=== PATIENT | female | born 1940 | race Caucasian/White ===

== ENCOUNTER → 2023-09-17 07:56 | Outpatient (REF) | payer MEDICARE, OTHER, SELFPAY ==
[2023-09-17 09:24] LABS: Glycohemoglobin (HgbA1c) 6.2 % (4.0-5.6)
[2023-09-17 09:26] LABS: ALT (SGPT) 20 U/L (0-35); AST (SGOT) 40 U/L (14-36); Blood Urea Nitrogen 25 mg/dl (7-17); HDL Cholesterol 83 mg/dl; LDL Cholesterol, Calculated 47 mg/dl; Total Cholesterol 159 mg/dl (50-199); Triglyceride 149 mg/dl (10-149); Very Low Density Lipoprotein 29 mg/dl (0-30)
[2023-09-17 10:11] LABS: Microalbumin, Random Urine 7.2 mg/dl (0.6-1.7); Microalbumin/creatinine Ratio 42.8 mg/g
== END ==
LOC: REG 07:56
PROVIDERS: ATTENDING PHYSICIAN Family Medicine
DX: E11.21 Type 2 diabetes mellitus with diabetic nephropathy (principal)
CPT/HCPCS: 36415; 80061; 82043; 82565; 82570; 83036; 84450; 84460; 84520

== ENCOUNTER → 2023-10-08 07:57 | Outpatient (REF) | payer MEDICARE, OTHER, SELFPAY ==
[2023-10-10 11:24] LABS: Renin Activity Results <0.1 ng/mL/hr
== END ==
LOC: REG 07:57
PROVIDERS: ATTENDING PHYSICIAN Specialist
DX: I10 Essential (primary) hypertension (principal)
CPT/HCPCS: 36415; 82088; 82384; 83835; 84244

== ENCOUNTER → 2023-10-29 07:44 | Outpatient (REF) | payer MEDICARE, OTHER, SELFPAY ==
[2023-10-29 08:11] LABS: % Eosinophils 0.6 % (0-6); % Lymphocytes 31.5 % (20.5-51.1); % Monocytes 17.2 % (1.7-9.3); % Neutrophils 50.7 % (42.2-75.2); Absolute Lymphocytes 1.1 10^3/uL (1.2-3.4); Absolute Monocytes 0.6 10^3/uL (0.1-0.6); Absolute Neutrophils 1.7 10^3/uL (1.4-6.5); Hematocrit 37.6 % (37.0-47.0); Hemoglobin 12.9 g/dL (12.0-16.0); Mean Corp Hgb Conc. 34.3 g/dL (33.0-37.0); Mean Corpuscular Hgb 29.1 pg (27.0-31.0); Mean Corpuscular Volume 84.9 fL (81.0-99.0); Mean Platelet Volume 11.5 fL (7.4-10.4); Nucleated Red Blood Cells % 0 %; Platelet Count 115 10^3/uL (130-400); Red Blood Cell Count 4.43 10^6/uL (4.20-5.40); Red Cell Dist. Width 13.9 % (11.5-14.5); White Blood Cell Count 3.4 10^3/uL (4.8-10.8)
[2023-10-29 08:36] LABS: ALT (SGPT) 26 U/L (0-35); AST (SGOT) 39 U/L (14-36); Albumin 4.6 g/dl (3.5-5.0); Alkaline Phosphatase 63 U/L (38-126); Blood Urea Nitrogen 29 mg/dl (7-17); Calcium 9.9 mg/dl (8.4-10.2); Carbon Dioxide 29 mmol/L (22-30); Chloride 105 mmol/L (98-107); Glucose 110 mg/dl (70-99); LDH 226 U/L (120-246); Potassium 4.6 mmol/L (3.5-5.1); Sodium 140 mmol/L (135-145); Total Bilirubin 0.8 mg/dl (0.2-1.3); Total Protein 7.2 g/dl (6.3-8.2); eGFR 34.79
[2023-10-31 02:19] LABS: Beta-2-Microglobulin 3.6 mg/L (<=3.0)
[2023-11-01 05:19] LABS: Albumin 4.42 g/dL (3.75-5.01); Alpha 2 Globulin 0.74 g/dL (0.48-1.05); Free Kappa Light Chains,Quant 36.66 mg/L (3.30-19.40); Free Lambda Light Chains,Quant 22.41 mg/L (5.71-26.30); IgA 312 mg/dL (68-408); IgG 788 mg/dL (768-1632); IgM 37 mg/dL (35-263); Immunofixation Electrophoresis IFE Done; Kappa/Lambda Fr Light Ratio 1.64 (0.26-1.65); Total Protein-Electrophoresis 7.1 g/dL (6.3-8.2)
== END ==
LOC: REG 07:44
PROVIDERS: ATTENDING PHYSICIAN Internal Medicine Hematology & Oncology; FAMILY PHYSICIAN Family Medicine
DX: D47.2 Monoclonal gammopathy (principal); D46.9 Myelodysplastic syndrome, unspecified; C83.38 Diffuse large B-cell lymphoma, lymph nodes of multiple sites; D70.9 Neutropenia, unspecified
CPT/HCPCS: 36415; 80053; 82232; 82784; 83521; 83615; 84155; 84165; 85025; 86334

== ENCOUNTER → 2024-04-08 08:24 | Outpatient (REF) | payer MEDICARE, OTHER, SELFPAY ==
[2024-04-08 09:27] LABS: Hematocrit 36.6 % (37.0-47.0); Hemoglobin 12.4 g/dL (12.0-16.0); Mean Corp Hgb Conc. 33.9 g/dL (33.0-37.0); Mean Corpuscular Hgb 29.5 pg (27.0-31.0); Mean Corpuscular Volume 86.9 fL (81.0-99.0); Platelet Count 108 10^3/uL (130-400); Red Blood Cell Count 4.21 10^6/uL (4.20-5.40); Red Cell Dist. Width 13.6 % (11.5-14.5); White Blood Cell Count 2.9 10^3/uL (4.8-10.8)
[2024-04-08 09:43] LABS: ALT (SGPT) 20 U/L (0-35); AST (SGOT) 37 U/L (14-36); Albumin 4.8 g/dl (3.5-5.0); Alkaline Phosphatase 69 U/L (38-126); Blood Urea Nitrogen 25 mg/dl (7-17); Calcium 10.3 mg/dl (8.4-10.2); Carbon Dioxide 26 mmol/L (22-30); Chloride 108 mmol/L (98-107); Glucose 105 mg/dl (70-99); Potassium 4.6 mmol/L (3.5-5.1); Sodium 147 mmol/L (135-145); Total Bilirubin 0.7 mg/dl (0.2-1.3); Total Protein 7.5 g/dl (6.3-8.2); eGFR 34.58
[2024-04-08 09:46] LABS: ALT (SGPT) 20 U/L (0-35); AST (SGOT) 38 U/L (14-36); Albumin 4.9 g/dl (3.5-5.0); Alkaline Phosphatase 67 U/L (38-126); Blood Urea Nitrogen 25 mg/dl (7-17); Calcium 10.2 mg/dl (8.4-10.2); Carbon Dioxide 25 mmol/L (22-30); Chloride 108 mmol/L (98-107); Glucose 107 mg/dl (70-99); HDL Cholesterol 70 mg/dl; LDH 253 U/L (120-246); LDL Cholesterol, Calculated 76 mg/dl; Potassium 4.7 mmol/L (3.5-5.1); Sodium 145 mmol/L (135-145); Total Bilirubin 0.7 mg/dl (0.2-1.3); Total Cholesterol 175 mg/dl (50-199); Total Protein 7.4 g/dl (6.3-8.2); Triglyceride 148 mg/dl (10-149); Very Low Density Lipoprotein 29 mg/dl (0-30)
[2024-04-08 09:56] LABS: Absolute Neutrophils -Man Diff 1.4 10^3/uL (1.4-6.5); Band Neutrophils 1 % (0-3); Hypochromasia Slight; Lymphocytes 36 % (20-51); Microcytosis 1+; Monocytes 14 % (2-9); Normal RBC Morphology No; Ovalocytes 1+; Platelets Checked Yes; Polychromasia Slight; Segmented Neutrophils 49 % (42-75); Total Cells Counted 100
[2024-04-08 10:08] LABS: TSH 0.24 uIU/ml (0.47-4.68)
[2024-04-08 10:13] LABS: Glycohemoglobin (HgbA1c) 5.8 % (4.0-5.6)
[2024-04-11 00:13] LABS: Albumin 4.49 g/dL (3.75-5.01); Alpha 1 Globulin 0.27 g/dL (0.19-0.46); Free Kappa Light Chains,Quant 41.16 mg/L (3.30-19.40); IgA 350 mg/dL (68-408); IgG 933 mg/dL (768-1632); IgM 55 mg/dL (35-263); Immunofixation Electrophoresis IFE Done; Kappa/Lambda Fr Light Ratio 1.72 (0.26-1.65); Total Protein-Electrophoresis 7.2 g/dL (6.3-8.2)
== END ==
LOC: REG 08:24
PROVIDERS: ATTENDING PHYSICIAN Internal Medicine Hematology & Oncology; FAMILY PHYSICIAN Family Medicine
DX: D47.2 Monoclonal gammopathy (principal); D46.9 Myelodysplastic syndrome, unspecified; C83.38 Diffuse large B-cell lymphoma, lymph nodes of multiple sites; D70.9 Neutropenia, unspecified; E11.21 Type 2 diabetes mellitus with diabetic nephropathy
CPT/HCPCS: 36415; 80053; 80061; 82784; 83036; 83521; 83615; 84155; 84165; 84443; 85025; 86334

== ENCOUNTER → 2024-04-12 09:04 | Outpatient (REF) | payer MEDICARE, OTHER, SELFPAY | LOC: RAD 09:04 | PROVIDERS: ATTENDING PHYSICIAN Internal Medicine Hematology & Oncology; FAMILY PHYSICIAN Family Medicine | DX: D47.2 Monoclonal gammopathy (principal); D46.9 Myelodysplastic syndrome, unspecified; C83.38 Diffuse large B-cell lymphoma, lymph nodes of multiple sites; D70.9 Neutropenia, unspecified | CPT/HCPCS: 71260; 74177; Q9967 ==

== ENCOUNTER → 2024-05-07 08:27 | Outpatient (REF) | payer MEDICARE, OTHER, SELFPAY ==
[2024-05-07 11:37] LABS: Blood Urea Nitrogen 24 mg/dl (7-17); Carbon Dioxide 26 mmol/L (22-30); Chloride 104 mmol/L (98-107); Glucose 101 mg/dl (70-99); Potassium 4.3 mmol/L (3.5-5.1); Sodium 144 mmol/L (135-145); eGFR 37.56
[2024-05-07 12:06] LABS: TSH Reflex To Free T4 0.66 uIU/ml (0.47-4.68)
[2024-05-08 21:24] LABS: Thyroid Peroxidase Ab (TPO) 1.1 IU/mL (0.0-9.0)
== END ==
LOC: REG 08:27
PROVIDERS: ATTENDING PHYSICIAN Family Medicine
DX: R89.9 Unspecified abnormal finding in specimens from other organs, systems and tissues (principal); R79.89 Other specified abnormal findings of blood chemistry; E83.52 Hypercalcemia
CPT/HCPCS: 36415; 80048; 84443; 86376

== ENCOUNTER → 2024-10-22 07:52 | Outpatient (REF) | payer MEDICARE, OTHER, SELFPAY ==
[2024-10-22 09:16] LABS: Hematocrit 36.2 % (37.0-47.0); Hemoglobin 12.2 g/dL (12.0-16.0); Mean Corp Hgb Conc. 33.7 g/dL (33.0-37.0); Mean Corpuscular Hgb 28.4 pg (27.0-31.0); Mean Corpuscular Volume 84.2 fL (81.0-99.0); Mean Platelet Volume 11.8 fL (7.4-10.4); Platelet Count 122 10^3/uL (130-400); Red Cell Dist. Width 14.6 % (11.5-14.5); White Blood Cell Count 3.5 10^3/uL (4.8-10.8)
[2024-10-22 09:31] LABS: ALT (SGPT) 21 U/L (0-35); AST (SGOT) 32 U/L (14-36); Albumin 4.5 g/dl (3.5-5.0); Alkaline Phosphatase 73 U/L (38-126); Blood Urea Nitrogen 20 mg/dl (7-17); Calcium 9.9 mg/dl (8.4-10.2); Carbon Dioxide 26 mmol/L (22-30); Chloride 107 mmol/L (98-107); Glucose 102 mg/dl (70-99); LDH 249 U/L (120-246); Potassium 4.1 mmol/L (3.5-5.1); Sodium 141 mmol/L (135-145); Total Bilirubin 0.7 mg/dl (0.2-1.3); Total Protein 7.2 g/dl (6.3-8.2); eGFR 41.06
[2024-10-22 12:31] LABS: Absolute Neutrophils -Man Diff 1.7 10^3/uL (1.4-6.5); Atypical Lymphocytes 6 %; Band Neutrophils 0 % (0-3); Eosinophils 1 % (0-6); Lymphocytes 26 % (20-51); Monocytes 17 % (2-9); Segmented Neutrophils 50 % (42-75)
[2024-10-22 12:33] LABS: Anisocytosis Slight; Hypochromasia Slight; Normal RBC Morphology No; Ovalocytes Slight; Platelets Checked Yes; Total Cells Counted 100
== END ==
LOC: REG 07:52
PROVIDERS: ATTENDING PHYSICIAN Internal Medicine Hematology & Oncology; FAMILY PHYSICIAN Family Medicine
DX: D47.2 Monoclonal gammopathy (principal); D46.9 Myelodysplastic syndrome, unspecified; C83.38 Diffuse large B-cell lymphoma, lymph nodes of multiple sites; D70.9 Neutropenia, unspecified
CPT/HCPCS: 36415; 80053; 83615; 85025

== ENCOUNTER 2024-11-22 15:25 | Emergency (ER) | payer MEDICARE, OTHER, SELFPAY ==
[2024-11-22 15:39] VITALS: BP 131/43
[2024-11-22 15:40] VITALS: BP 131/43
[2024-11-22 16:10] LABS: % Basophils 0.1 % (0-2); % Immature Granulocytes 0.4 % (0-0.5); % Lymphocytes 12.9 % (20.5-51.1); % Monocytes 12.2 % (1.7-9.3); % Neutrophils 74.4 % (42.2-75.2); Absolute Lymphocytes 0.9 10^3/uL (1.2-3.4); Absolute Monocytes 0.8 10^3/uL (0.1-0.6); Absolute Neutrophils 5.1 10^3/uL (1.4-6.5); Hematocrit 35.8 % (37.0-47.0); Hemoglobin 12.1 g/dL (12.0-16.0); Mean Corp Hgb Conc. 33.8 g/dL (33.0-37.0); Mean Corpuscular Hgb 28.4 pg (27.0-31.0); Nucleated Red Blood Cells % 0 %; Platelet Count 137 10^3/uL (130-400); Red Blood Cell Count 4.26 10^6/uL (4.20-5.40); Red Cell Dist. Width 14.2 % (11.5-14.5); White Blood Cell Count 6.8 10^3/uL (4.8-10.8)
[2024-11-22 16:24] LABS: ALT (SGPT) 21 U/L (0-35); AST (SGOT) 34 U/L (14-36); Albumin 5.1 g/dl (3.5-5.0); Alkaline Phosphatase 88 U/L (38-126); Blood Urea Nitrogen 31 mg/dl (7-17); Calcium 10.1 mg/dl (8.4-10.2); Carbon Dioxide 23 mmol/L (22-30); Chloride 105 mmol/L (98-107); Glucose 225 mg/dl (70-99); Lipase 188 U/L (23-300); Potassium 3.9 mmol/L (3.5-5.1); Sodium 142 mmol/L (135-145); Total Bilirubin 0.8 mg/dl (0.2-1.3); Total Protein 7.6 g/dl (6.3-8.2)
[2024-11-22 17:17] VITALS: BP 130/54
[2024-11-22 17:21] VITALS: BMI 20.7
--- NOTE | 2024-11-22 17:34 | ED.GENMED ---
History of Present Illness
General
Chief Complaint: Abdominal Symptoms
Source: patient
Exam Limitations: none
Time Seen by Provider: 11/22/24 16:47
Nursing documentation reviewed up to this point in time: agreed with
History of Present Illness
History of Present Illness:
Patient is an 84-year-old female brought by EMS. Son at bedside reports patient does have dementia and lives with him. Normally she is up in the morning but when he went to work this morning she was still sleeping and when he came home she was
still in bed but does not like her. She complained of not feeling well when her son got home from work. He called EMS and she did have an episode of vomiting.
Patient is awake alert she is pleasantly confused and unable to give a good history.
She denies any abdominal pain now. She denies any nausea now. She has no complaints. She denies any chest pain shortness of breath.
Past History
Past History
ED Past Medical History: CVA, HTN, Hypercholesterolemia, Other (Glaucoma, hx of dvt) and Other (hypercalcemia, anemia, stage 3 KD)
ED Past Surgical History: Negative Cardiac
Social History
Tobacco: Non-smoker
Alcohol: None
Drug: None
Living: with family
Employment: Retired
Family History
Family History: Other (Noncontributory)
Review of Systems
Review of Systems
Allergies reviewed?: Yes
Unable to obtain full review of systems at this time due to: dementia
Other source history: family
All Other Systems: ROS reviewed and negative except as documented in HPI and ROS
Constitutional: Denies fever, fatigue or chills
EENT: Reports no symptoms
Respiratory: Reports no symptoms
Cardiac: Reports no symptoms; Denies chest pain
ABD/GI: Reports nausea and vomiting; Denies abdominal pain
: Reports no symptoms
Musculoskeletal: Reports no symptoms
Skin: Reports no symptoms
Psychiatric: Reports no symptoms
Phy Exam
General Physical Exam
General Presentation: no apparent distress
General age: appears stated age
General Skin: warm and dry
General Habitus: normal
General Mental: alert
General Hydration: appears well hydrated
Cardiovascular Exam
Cardiovascular Exam: regular rate/rhythm, no murmur and normal peripheral pulses
Pulmonary Exam
Pulmonary Exam: lungs clear and no respiratory distress
Gastrointestinal Exam
Gastrointestinal Exam: non tender and soft
Neurological Exam
Neurological Exam: alert and oriented x3
Musculoskeletal Exam
Musculoskeletal Exam: full ROM
Skin Exam
Skin Exam: normal color and warm/dry
Psychiatric Exam
Psychiatric Exam: normal mood/affect
Course
Orders/Labs/Results
Orders:
Orders
11/22/24 15:58
CMP [Comprehensive Metabolic Panel] Urgent
Complete Blood Count/With Diff Urgent
Lipase Urgent
11/22/24 17:35
Straight cath- Treatment ONCE
UA Reflex to Culture [Urinalysis Reflex To Culture] Urgent
11/22/24 17:36
Electrocardiogram (*1) Stat
Reason for Study: Other
Other Reason for Exam: chest pain
Cardiac Monitoring- Treatment ONCE
EKG- Treatment ONCE
0.9% Sodium Chloride 500 ml [Nss] 500 ml IV BOLUS
Ondansetron Injectable [Zofran] 4 mg IV NOW STA
11/22/24 17:41
COVID-19 Antigen Urgent
Source: Nasal Swab
Influenza A+B Rapid Molecular Urgent
WES Source: Nasal Swab
Specimen Description:
Abnormal Lab Results
11/22/24
15:58
Hct 35.8 L %
(37.0-47.0)
MPV 12.0 H fL
(7.4-10.4)
Absolute Lymphs (auto) 0.9 L 10^3/uL
(1.2-3.4)
Absolute Monos (auto) 0.8 H 10^3/uL
(0.1-0.6)
Lymphocytes % 12.9 L %
(20.5-51.1)
Monocytes % 12.2 H %
(1.7-9.3)
BUN 31 H mg/dl
(7-17)
Creatinine 1.6 H mg/dL
(0.6-1.0)
Glucose 225 H mg/dl
(70-99)
Albumin 5.1 H g/dl
(3.5-5.0)
11/22/24 15:58
11/22/24 15:58
Vital Signs
Initial and Last Documented VS:
Initial Vital Signs
Temp Pulse Resp BP Pulse Ox
98.1 F 70 16 131/43 97
11/22/24 15:39 11/22/24 15:39 11/22/24 15:39 11/22/24 15:39 11/22/24 15:39
Last Documented Vital Signs
Temp Pulse Resp BP Pulse Ox
97.6 F 60 16 120/53 100
11/22/24 15:40 11/22/24 19:45 11/22/24 19:45 11/22/24 19:00 11/22/24 19:45
Curtain Hemmer [employer] consulted with Physician
Curtain [employer]mer [employer] consulted with physician?: Yes
Name of Physician Consulted: librado
MDM/Problems Addressed
Differential Diagnosis Includes:
not limited to: Viral syndrome, nausea
MDM/Problems Addressed:
As documented patient is an 82-year-old female with dementia who was brought by EMS. Son reports patient complained of not feeling well at home and had episode of vomiting and EMS was called. She presented awake alert no acute distress though she
could not give a good history she had no complaints of pain or nausea. Abdomen soft and nontender. She has no complaints she was afebrile with a normal white count. She has baseline renal disease and her renal function is at baseline .
She was given 500 cc of fluid along with Zofran and remained awake alert with no complaints. She is very pleasant her family was at bedside she was very conversive and had no further complaints in the ER. She drank nitin edin. She was unable to
give a urine specimen however denies any UTI symptoms she had no tenderness over suprapubic region and has a normal white count with no fever. Nausea resolved stable for discharge home. case d/c w/ ED physician.
*Pulse Oximetry
Patient hypoxic: no
*EKG
Interpreted by ED Provider?: Yes
Interpretation: abnormal
Heart Rate: 59
Rate: bradycardiac
Rhythm: sinus
Ischemia: non-specific ST changes
*Critical Care Note
Total Time (30-74mins, 75-104mins- exclusive of procedures): Not Applicable
ED Attending Note
-
Portions of this chart may have been created with voice recognition software.� Occasional wrong word or��sound alike� substitutions may have occurred due to the inherent limitations of voice recognition software.
Discharge Plan
Departure
Patient Disposition: Home (Routine Discharge)
Date of Disposition: 11/22/24
Time of Disposition: 19:57
Patient with high blood pressure during this ER visit?: No
Condition: Fair
Covid-19: Not Applicable
Discharge Problem:
Nausea
Instructions: Nausea and Vomiting, Adult (DC)
Prescriptions:
No Action
aspirin 81 MG tablet,chewable
81 mg PO DAILY 0RF
atorvastatin 40 MG tablet
40 mg PO QPM
acetaminophen 325 MG tablet
650 mg PO Q4HPRN PRN (Reason: MILLER/mild pain/temp > 100.4 F) 0RF
donepezil 5 mg Tablet
5 mg PO DAILY
metoprolol succinate 25 mg Tablet Extended Release 24 Hr
25 mg PO DAILY
Referrals:
Cynthia Kaplan DO [Family Provider] -
Activity Restrictions/Additional Instructions:
As discussed patient should be evaluated by her family doctor in the next 2 to 3 days. Return if any worsening of symptoms.
Interventions
Interventions:
*Risk Screen - Suicide Last Done: 11/22/24 15:40
*General Assessment Last Done: 11/22/24 17:21
*Neglect/Abuse Screening Last Done: 11/22/24 15:40
*ED- Fall Risk Assessment Last Done: 11/22/24 17:21
*ED COVID-19 Vaccine History Last Done: 11/22/24 17:21
SZ-Xgqnnm-Uyszfnccgo Assessment Last Done: 11/22/24 17:21
Discharge Date and Time
Print Language: INDONESIAN
[2024-11-22] MEDS: ZOFRAN 4 MG IV (17:46)
[2024-11-22] MEDS: NSS 500 IV (17:46)
[2024-11-22 18:01] VITALS: BP 116/44
[2024-11-22 18:11] LABS: COVID-19 Antigen Negative (Negative)
[2024-11-22 19:00] VITALS: BP 120/53
== END 2024-11-22 20:09 | disposition home or self-care (01) ==
LOC: EMR 15:25
PROVIDERS: Nurse Practitioner; EMERGENCY PHYSICIAN Emergency Medicine; FAMILY PHYSICIAN Family Medicine
DX: R11.0 Nausea (principal); F03.90 Unspecified dementia, unspecified severity, without behavioral disturbance, psychotic disturbance, mood disturbance, and anxiety; E78.00 Pure hypercholesterolemia, unspecified; Z86.718 Personal history of other venous thrombosis and embolism; Z86.73 Personal history of transient ischemic attack (TIA), and cerebral infarction without residual deficits; I12.9 Hypertensive chronic kidney disease with stage 1 through stage 4 chronic kidney disease, or unspecified chronic kidney disease; N18.4 Chronic kidney disease, stage 4 (severe); Z11.52 Encounter for screening for COVID-19
CPT/HCPCS: 96374; 96361; 99284; 80053; 83690; 85025; 87502; 87811; 93005

== ENCOUNTER → 2025-03-23 08:03 | Outpatient (REF) | payer MEDICARE, OTHER, SELFPAY ==
[2025-03-23 08:49] LABS: Hematocrit 36.5 % (37.0-47.0); Hemoglobin 12.1 g/dL (12.0-16.0); Mean Corp Hgb Conc. 33.2 g/dL (33.0-37.0); Mean Corpuscular Volume 84.9 fL (81.0-99.0); Nucleated Red Blood Cells % 0 %; Platelet Count 117 10^3/uL (130-400); Red Cell Dist. Width 14.6 % (11.5-14.5)
[2025-03-23 09:25] LABS: Calcium 10.2 mg/dl (8.4-10.2)
[2025-03-23 09:48] LABS: Microalb - Urine Creatinine 126.800 mg/dl
[2025-03-23 09:49] LABS: Microalbumin, Random Urine 3.6 mg/dl (0.6-1.7)
[2025-03-23 10:35] LABS: ALT (SGPT) 20 U/L (0-35); AST (SGOT) 32 U/L (14-36); Albumin 4.9 g/dl (3.5-5.0); Alkaline Phosphatase 62 U/L (38-126); Blood Urea Nitrogen 28 mg/dl (7-17); Calcium 10.1 mg/dl (8.4-10.2); Carbon Dioxide 24 mmol/L (22-30); Chloride 109 mmol/L (98-107); Glucose 105 mg/dl (70-99); HDL Cholesterol 65 mg/dl; LDH 242 U/L (120-246); LDL Cholesterol, Calculated 71 mg/dl; Potassium 4.7 mmol/L (3.5-5.1); Sodium 141 mmol/L (135-145); Total Protein 8.0 g/dl (6.3-8.2); Very Low Density Lipoprotein 28 mg/dl (0-30); eGFR 29.57
[2025-03-23 16:06] LABS: Glycohemoglobin (HgbA1c) 5.9 % (4.0-5.6)
== END ==
LOC: REG 08:03
PROVIDERS: ATTENDING PHYSICIAN Internal Medicine Hematology & Oncology; FAMILY PHYSICIAN Family Medicine
DX: D47.2 Monoclonal gammopathy (principal); D46.9 Myelodysplastic syndrome, unspecified; C83.38 Diffuse large B-cell lymphoma, lymph nodes of multiple sites; D70.9 Neutropenia, unspecified; E11.21 Type 2 diabetes mellitus with diabetic nephropathy
CPT/HCPCS: 36415; 80053; 80061; 82043; 82232; 82310; 82570; 82784; 83036; 83521; 83615; 84155; 84165; 85025; 86334

== ENCOUNTER → 2025-03-31 08:34 | Outpatient (REF) | payer MEDICARE, OTHER, SELFPAY | LOC: RAD 08:34 | PROVIDERS: ATTENDING PHYSICIAN Internal Medicine Hematology & Oncology; FAMILY PHYSICIAN Family Medicine | DX: D47.2 Monoclonal gammopathy (principal); D46.9 Myelodysplastic syndrome, unspecified; C83.38 Diffuse large B-cell lymphoma, lymph nodes of multiple sites; D70.9 Neutropenia, unspecified | CPT/HCPCS: 71250; 74176 ==

== ENCOUNTER → 2025-05-27 08:26 | Outpatient (REF) | payer MEDICARE, OTHER, SELFPAY ==
[2025-05-27 09:29] LABS: Blood Urea Nitrogen 25 mg/dl (7-17); Calcium 10.0 mg/dl (8.4-10.2); Carbon Dioxide 26 mmol/L (22-30); Chloride 108 mmol/L (98-107); Glucose 116 mg/dl (70-99); HDL Cholesterol 69 mg/dl; LDL Cholesterol, Calculated 64 mg/dl; Potassium 4.1 mmol/L (3.5-5.1); Sodium 143 mmol/L (135-145); Very Low Density Lipoprotein 28 mg/dl (0-30); eGFR 34.36
[2025-05-27 09:59] LABS: TSH 3.12 uIU/ml (0.47-4.68)
[2025-05-27 10:32] LABS: Glycohemoglobin (HgbA1c) 5.9 % (4.0-5.6)
== END ==
LOC: REG 08:26
PROVIDERS: ATTENDING PHYSICIAN Family Medicine
DX: E11.21 Type 2 diabetes mellitus with diabetic nephropathy (principal); E78.5 Hyperlipidemia, unspecified
CPT/HCPCS: 36415; 80048; 80061; 83036; 84443